=== PATIENT | male | born 1970 | race Caucasian/White ===

== ENCOUNTER 2025-03-13 15:15 | Emergency (ER) | payer OTHER, SELFPAY ==
--- NOTE | ~2025-03-13 | CT_ITS ---
CLINICAL HISTORY: Left lower riib spleem pain. fall down stairs CT chest with contrast Comparison: None Findings: The heart is normal size. The visualized thyroid and mediastinum are unremarkable. The lungs are clear. The upper abdomen is unremarkable. The bones are intact. IMPRESSION: 1. Unremarkable chest CT. This document has been electronically signed by: Hector Singh MD on 03/13/2025 18:11:21
--- NOTE | ~2025-03-13 | CT_ITS ---
CLINICAL HISTORY: fall down stairs spleen tenderness. CT abdomen and pelvis with contrast Comparison: None Findings: No consolidation or effusion. Hepatic steatosis. Small hypodensities of the liver are statistically representing cyst or hemangioma. The gallbladder and additional solid organs are within normal limits. No evidence of splenic injury. No renal stones. No bowel obstruction, pneumoperitoneum, or pneumatosis. Unremarkable abdominal aorta. There is a 1.3 x 1.5 cm soft tissue nodule of the left upper abdomen series 5, image 21. Pelvic contents unremarkable. Normal appendix. The bones are intact. IMPRESSION: No acute findings. Soft tissue nodule of the left upper abdomen could represent an enlarged lymph node or less likely a splenule. This document has been electronically signed by: Hector Singh MD on 03/13/2025 18:23:12
--- NOTE | ~2025-03-13 | CT_ITS ---
CLINICAL HISTORY: Fall down stairs CT head without contrast Comparison: None Findings: No intra-axial mass, midline shift, hydrocephalus, or acute hemorrhage. No significant atrophy-like change or white matter disease. The visualized paranasal sinuses and mastoid air cells are normal. The orbits are within normal limits. There is no acute fracture. IMPRESSION: 1. No acute intracranial findings. This document has been electronically signed by: Hector Singh MD on 03/13/2025 18:07:08
--- NOTE | ~2025-03-13 | CT_ITS ---
CLINICAL HISTORY: fall down [address] cervical spine without contrast Comparison: None Findings: Normal vertebral body alignment. No significant degenerative change. No acute fractures or dislocations. No acute findings on limited view of the intracranial contents. Soft tissues of the neck are normal. No consolidation or effusion at the lung apices. IMPRESSION: No acute findings. This document has been electronically signed by: Hector Singh MD on 03/13/2025 18:06:41
[2025-03-13 15:51] VITALS: BP 182/98; PULSE 85; RESP 18; TEMP 37; O2SAT 100; BMI 27.7
--- NOTE | 2025-03-13 16:01 | ECG_ITS ---
Test Reason : fall Blood Pressure : */* mmHG Vent. Rate : 72 BPM Atrial Rate : 72 BPM P-R Int : 170 ms QRS Dur : 96 ms QT Int : 398 ms P-R-T Axes : 36 -18 6 degrees QTcB Int : 435 ms Normal sinus rhythm Normal ECG No previous ECGs available Referred By: Phu Wheatley Electronically Signed By: VASYL MCMANUS MD
--- NOTE | 2025-03-13 16:02 | ED.GENADULT ---
HPI - General Adult General Chief complaint: Fall Stated complaint: Fall/ T-1 Time Seen by Provider: 03/13/25 16:02 Source: patient Mode of arrival: ambulatory Limitations: no limitations History of Present Illness ED Provider: Phu Wheatley HPI narrative: 54 yold male who states no pmh presents to the ED for left lower rib/spleen pain after falling down 10 stairs last night. Patient states he tripped over his cat. Patient states he felll unto his left chest/abdomen. patient admits to hitting head, but denies loss of conscisosuness. Patient is not on daily meds. patient than states he was constipated and while straining he had one episode of slight red blood in stool. Related Data Previous Rx's ?Medication ?Instructions ?Recorded ketorolac 10 mg tablet 10 mg PO Q6H PRN pain 5 days #20 03/13/25 tabs Allergies Allergy/AdvReac Type Severity Reaction Status Date / Time Seasonal Allergies Allergy Unknown Verified 03/13/25 15:53 Review of Systems Review of Systems: left rib/splleing pain Yes all other systems are reviewed and are negative [facility] Social History Social History Advance Directives: No Advance Directives Information Provided: No Physical Exam ED Vital Signs: Vital Signs - 24 hr 03/13/25 15:51 03/13/25 19:25 03/13/25 19:27 Temperature 98.6 F 98.1 F 98.1 F Pulse Rate 85 77 77 Respiratory Rate 18 16 16 Blood Pressure 182/98 H 169/88 H 169/88 H Pulse Oximetry 100 98 98 Oxygen Delivery Method Room Air Room Air Room Air BMI result Body Mass Index 27.7 Const General: cooperative, healthy appearing, comfortable, no acute distress, well developed, alert, awake and Physically active Orientation/consciousness: patient oriented x3 HENMT Head: Yes normal to inspection, Yes No palpable skull fracture present, Yes normocephalic and Yes atraumatic Ears: hearing grossly normal bilaterally, external ears normal, TM's normal bilaterally, TM normal on the right, TM normal on the left, EAC's normal and mastoids normal Throat: Yes posterior oropharynx normal, Yes tonsils normal and Yes uvula midline Eyes General: appearance normal, both eyes and all related structures Visual Lara: normal visual lara by confrontation Alignment and Position: alignment normal Periorbital: periorbital findings normal Eyelids: Yes eyelids normal Conjunctivae: conjunctivae normal Sclerae: sclerae normal Corneas: corneas normal Pupils: Equal, round and reactive pupils present EOM: EOMs intact bilaterally Direct Ophthalmoscopy: normal light reflex Neck Neck: Yes normal visual inspection, Yes full ROM, Yes no lymphadenopathy, Yes no meningeal signs, Yes trachea midline, Yes supple, No anterior neck swelling and No tender Chest Chest palpation & inspection: normal inspection of the chest and normal palpation of entire chest wall Chest/axillae images: 1. positive for tenderness on palpation. negative for ecchymosis, crepitus, erythema, or deformities. negative for rash. Resp Effort & Inspection: normal respiratory effort and able to speak in complete sentences Auscultation: clear to auscultation bilaterally GI Inspection: Yes normal to inspection Palpation (GI): Soft to palpation, not firm, nontender, no guarding and not rigid General: Yes no CVA tenderness Back/Spine/Pelvis Back: no CVA tenderness and No back tenderness Skin General skin exam: no rashes or lesions noted, elasticity normal and turgor normal Neuro General: patient oriented x3, gait normal, tone normal, moves all extremities, Normal light touch and pain sensation, no meningeal signs, no focal motor deficits and CN's II-XI intact bilaterally Cranial nerves: Yes Equal, round and reactive pupils present Extrem General: Yes normal to inspection, Yes full ROM and Yes capillary refill normal Psych Appearance: grossly normal, well kempt and not disheveled Course Course Course Narrative: RME; 54-year-old male presents to the ED for left lower chest plane abdominal pain since last night after falling down 10 stairs and falling onto left abdominal chest area. Patient states also hitting head. Patient denies any loss of consciousness. Patient states he slipped due to avoiding stepping his cat. Patient states today while using the bathroom there was slight blood in stool, but patient was straining and is constipated. Due to trauma and slight blood in stool with left spleen tendernss will do trauma scan. Medications Administered Discontinued Medications Generic Name Dose Route Start Last Admin Trade Name Freq PRN Reason Stop Dose Admin Iohexol 75 ml 03/13/25 17:33 03/13/25 17:34 Iohexol 350 Mg/Ml 75 Ml Infus..Btl IV 03/13/25 17:34 75 ml ONCE ONE Administration Ketorolac Tromethamine 30 mg 03/13/25 18:48 03/13/25 19:05 Ketorolac Tromethamine 30 Mg/Ml Vial IVPUSH 03/13/25 18:49 30 mg ONCE ONE Administration Medical Decision Making Medical Decision Making [facility] Narrative: 54 yold mal presents to the ED left sided rib/spleen tenderness ever since falling down 10 stairs last night. Patient tripped over his cat. patient denies any loss of consciouisness. Patient states left lower ribs spleen pain on movement ever since injury. Patient also states constipated has small right blood in stool last night. Patient has had only 1 episode. Patient denies any rectal bleeding ever since. Patient refuse rectal exam. Due to traumatic story patient had a trauma scan which shows no life-threatening etiology. Head cervical spine normal. Chest abdominal CT scan negative for any life-threatening etiology. Patient given Toradol for pain. EKG negative STEMI. Two troponins negative. Repeat CBC normal at baseline. Patient is safe for discharge. Not suspecting PE, KS, CHF, GI bleed, or any orther life threatening etiology. patient informed not take aspirin or any other NSAIDS while taking ketorolac prescription. Patient made aware of left upper abdominal lymphnode and given copy of images for follow up with PCp. Differential Diagnosis Differential Diagnoses: The differential diagnosis associated with the presentation includes (Rib fracture, splenic blade injury, abdominal injury, brain bleed, cervical spine fracture. Colitis) Admission/Observation Consideration of admission/observation: Escalation of care including admission/observation considered Lab Data [facility] Lab Attestation statement: I reviewed the patient's lab results. 03/13/25 18:19 03/13/25 16:05 Labs: Lab Results 03/13/25 03/13/25 Range/Units 16:05 18:19 WBC 8.1 8.6 (4.8-10.8) X10*3/uL RBC 4.48 L 4.48 L (4.60-5.80) X10*6/uL Hgb 15.1 15.0 (14.0-18.0) g/dl Hct 40.8 L 41.2 L (42.0-52.0) % MCV 91.1 92.0 (80.0-98.0) fL MCH 33.7 H 33.5 H (27.0-33.0) pg MCHC 37.0 H 36.4 H (31.0-36.0) g/dl RDW 11.7 11.6 (11.0-16.0) % Plt Count 194 192 (160-400) X10*3/uL MPV 9.3 L 9.2 L (9.4-12.4) fL Immature Gran % (Auto) 0.2 0.3 (0.0-0.4) % Neut % (Auto) 79.0 H 77.1 H (45-73) % Lymph % (Auto) 13.7 L 14.7 L (20-40) % [place] % (Auto) 6.8 7.5 (2-11) % Eos % (Auto) 0.1 0.1 (0-4) % Baso % (Auto) 0.2 0.3 (0-2) % Lymph # (Auto) 1.1 L 1.3 (1.2-4.9) X10*3/uL [place] # (Auto) 0.6 0.7 (0.1-1.2) X10*3/uL Eos # (Auto) 0.0 0.0 (0.0-0.4) X10*3/uL Baso # (Auto) 0.0 0.0 (0.0-0.2) X10*3/uL Abs Immat Gran (auto) 0.02 0.03 (0.00-0.03) X10*3/uL Absolute Neuts (auto) 6.4 6.7 (2.0-8.3) x10*3/uL Absolute Nucleated RBC 0.000 0.000 (0.0-0.012) X10*3/uL Nucleated RBC % (auto) 0.0 0.0 (0.0-0.2) /100WBC PT 10.9 (10.9-12.4) SEC INR 0.9 (0.9-1.1) APTT 25.9 L (26.0-36.8) SEC Sodium 139 (135-145) mmol/L Potassium 3.9 (3.3-5.1) mmol/L Chloride 106 (96-108) mmol/L Carbon Dioxide 19 L (22-29) mmol/L Anion Gap 18 (12-20) BUN 9 (9-16) mg/dL Creatinine 0.83 (0.5-1.4) mg/dL Estim Creat Clear Calc 94.3 Estimated GFR > 60 Random Glucose 97 (60-115) mg/dL Calcium 9.2 (8.4-10.2) mg/dL Total Bilirubin 1.6 H (0.0-1.0) mg/dL AST 31 (5-37) U/L ALT 27 (0-40) U/L Alkaline Phosphatase 60 (39-117) U/L Troponin I High Sens < 2.7 < 2.7 (<3.5-35.0) ng/L Total Protein 7.7 (6.5-8.0) g/dL Albumin 4.6 (3.5-5.0) g/dL Independent Interpretation I performed an independent interpretation of an: CT Scan Radiology Impression Discussion of test interpretation with radiology: I have reviewed the radiologist's reading. Independent Historian Clinical information obtained from an independent historian. History obtained from or confirmed by: Other (Patient) Prescription Management I considered prescription management with: Pain Medication Discharge Plan Discharge Clinical Impression: Fall, Contusion Patient Disposition: Home, Self-Care Instructions: Fall Prevention (ED), Bone Bruise (ED) Additional Instructions: Your labs, EKG and images came back reassuring. Recommend follow up with PCP. Return to the ED immediately for any chest pain, shortness of breath, abdominal pain, rectal bleeding, bloody urine, fever, chills, headache, dizziness, or any other concerning symptoms. Do not take any other NSAIDS while taking ketoralac. Do not take any naproxen, allelve, motrin, ibuprofen, diclofenac, or any NSAIDS. CT abdomen and pelvis with contrast Comparison: None Findings: No consolidation or effusion. Hepatic steatosis. Small hypodensities of the liver are statistically representing cyst or hemangioma. The gallbladder and additional solid organs are within normal limits. No evidence of splenic injury. No renal stones. No bowel obstruction, pneumoperitoneum, or pneumatosis. Unremarkable abdominal aorta. There is a 1.3 x 1.5 cm soft tissue nodule of the left upper abdomen series 5, image 21. Pelvic contents unremarkable. Normal appendix. The bones are intact. IMPRESSION: No acute findings. Soft tissue nodule of the left upper abdomen could represent an enlarged lymph node or less likely a splenule. This document has been electronically signed by: Hector Singh MD on 03/13/2025 18:23:12 CT chest with contrast Comparison: None Findings: The heart is normal size. The visualized thyroid and mediastinum are unremarkable. The lungs are clear. The upper abdomen is unremarkable. The bones are intact. IMPRESSION: 1. Unremarkable chest CT. This document has been electronically signed by: Hector Singh MD on 03/13/2025 18:11:21 CT head without contrast Comparison: None Findings: No intra-axial mass, midline shift, hydrocephalus, or acute hemorrhage. No significant atrophy-like change or white matter disease. The visualized paranasal sinuses and mastoid air cells are normal. The orbits are within normal limits. There is no acute fracture. IMPRESSION: 1. No acute intracranial findings. This document has been electronically signed by: Hector Singh MD on 03/13/2025 18:07:08 Dictated By: Hector Singh MD Signed By: <Electronically signed by Hector Singh MD in OV> 03/13/[address] cervical spine without contrast Comparison: None Findings: Normal vertebral body alignment. No significant degenerative change. No acute fractures or dislocations. No acute findings on limited view of the intracranial contents. Soft tissues of the neck are normal. No consolidation or effusion at the lung apices. IMPRESSION: No acute findings. This document has been electronically signed by: Hector Singh MD on 03/13/2025 18:06:41 Prescriptions: New ketorolac 10 mg tablet 10 mg PO Q6H PRN (Reason: pain) 5 Days Qty: 20 0RF Rx Instructions: Patient received 30 mg IV toradol in the ED Stand Alone Forms: Work/School Release Interventions: ED Discharge Assessment Last Done: 03/13/25 19:27 Discharge Date/Time: 03/13/25 19:28 Print Language: Spanish
[2025-03-13 16:09] LABS: MANUAL DIFF FLAG NO
[2025-03-13 16:11] LABS: Basophils Percent Auto 0.2 % (0-2); Eosinophils Percent Auto 0.1 % (0-4); Hematocrit 40.8 % (42.0-52.0); Hemoglobin 15.1 g/dl (14.0-18.0); Imm Gran Abs Auto 0.02 X10*3/uL (0.00-0.03); Imm Gran Pct Auto 0.2 % (0.0-0.4); Lymphocytes Absolute Auto 1.1 X10*3/uL (1.2-4.9); Lymphocytes Percent Auto 13.7 % (20-40); Mean Corpuscular Hemoglobin 33.7 pg (27.0-33.0); Mean Corpuscular Volume 91.1 fL (80.0-98.0); Mean Platelet Volume 9.3 fL (9.4-12.4); Monocytes Absolute Auto 0.6 X10*3/uL (0.1-1.2); Monocytes Percent Auto 6.8 % (2-11); Neutrophils Absolute Auto 6.4 x10*3/uL (2.0-8.3); Platelet Count 194 X10*3/uL (160-400); Red Blood Count 4.48 X10*6/uL (4.60-5.80); Red Cell Distribution Width 11.7 % (11.0-16.0); White Blood Count 8.1 X10*3/uL (4.8-10.8)
[2025-03-13 16:16] LABS: INTERNATIONAL NORM RATIO 0.9 (0.9-1.1); Prothrombin Time 10.9 SEC (10.9-12.4)
[2025-03-13 16:19] LABS: Partial Thromboplastin Time 25.9 SEC (26.0-36.8)
[2025-03-13 16:33] LABS: Alanine Aminotransferase 27 U/L (0-40); Albumin Level 4.6 g/dL (3.5-5.0); Anion Gap 18 (12-20); Aspartate Amino Transferase 31 U/L (5-37); Bilirubin Total 1.6 mg/dL (0.0-1.0); Blood Urea Nitrogen 9 mg/dL (9-16); Calcium 9.2 mg/dL (8.4-10.2); Carbon Dioxide 19 mmol/L (22-29); Chloride 106 mmol/L (96-108); Creatinine Clr Calc Pharmacy 94.3; Estimated Glomerular Filt Rate > 60; Glucose Random 97 mg/dL (60-115); Potassium 3.9 mmol/L (3.3-5.1); Sodium 139 mmol/L (135-145); Total Protein 7.7 g/dL (6.5-8.0)
[2025-03-13 16:36] LABS: Troponin-I High Sensitivity < 2.7 ng/L (<3.5-35.0)
[2025-03-13 17:22] LABS: Alkaline Phosphatase 60 U/L (39-117)
[2025-03-13] MEDS: iohexoL 350 MG/ML 75 ML INFUS..BTL IV (17:34)
[2025-03-13 18:22] LABS: MANUAL DIFF FLAG NO
[2025-03-13 18:27] LABS: Basophils Percent Auto 0.3 % (0-2); Eosinophils Percent Auto 0.1 % (0-4); Hematocrit 41.2 % (42.0-52.0); Imm Gran Abs Auto 0.03 X10*3/uL (0.00-0.03); Imm Gran Pct Auto 0.3 % (0.0-0.4); Lymphocytes Absolute Auto 1.3 X10*3/uL (1.2-4.9); Lymphocytes Percent Auto 14.7 % (20-40); Mean Corpuscular HGB Conc 36.4 g/dl (31.0-36.0); Mean Corpuscular Hemoglobin 33.5 pg (27.0-33.0); Mean Platelet Volume 9.2 fL (9.4-12.4); Monocytes Absolute Auto 0.7 X10*3/uL (0.1-1.2); Monocytes Percent Auto 7.5 % (2-11); Neutrophils Absolute Auto 6.7 x10*3/uL (2.0-8.3); Neutrophils Percent Auto 77.1 % (45-73); Platelet Count 192 X10*3/uL (160-400); Red Blood Count 4.48 X10*6/uL (4.60-5.80); Red Cell Distribution Width 11.6 % (11.0-16.0); White Blood Count 8.6 X10*3/uL (4.8-10.8)
[2025-03-13 18:42] LABS: Troponin-I High Sensitivity < 2.7 ng/L (<3.5-35.0)
--- OUTSIDE RECORDS SUMMARY | 2025-03-13 18:57 | XMS_ITS ---
Author Name [facility] Organization Unknown Encounters Encounter Type Encounter Reason Primary Diagnosis Location Date Ambulatory [facility] [place] 09/25/2024 Ambulatory [facility] [place] 09/25/2024 Ambulatory [facility] [place] 09/25/2024
--- OUTSIDE RECORDS SUMMARY | 2025-03-13 18:57 | XMS_ITS | Clinical Summary ---
Author Organization [address] Address [address] [place] [address] Phone Care Team Providers Care Warranty Coordinator Name Role Phone Isaiah Collier MD Primary Care Provider Allergies No known active allergies Medications sildenafiL (VIAGRA) 50 mg tablet Take 1 tablet (50 mg total) by mouth if needed for erectile dysfunction. 10 tablet 5 01/01/2025 Active Active Problems Problem Noted Date Diagnosed Date Elevated bilirubin 01/04/2023 Overview (10/19/2024): Adonis? Erectile dysfunction 01/04/2023 Hyperlipidemia 01/04/2023 Impaired fasting blood sugar 01/04/2023 Immunizations Name Administration Dates Next Due Influenza Quadravalent, MDCK , 0.5ml, preservative free (Flucelvax) 6mo and older 12/22/2021 Influenza trivalent, 0.5mL, preservative free (Fluarix; FluLaval; Fluzone) ages 6mo and older (Afluria) 3 years and older 09/05/2024 Surgical History Surgery Date Site/Laterality Comments OTHER SURGICAL HISTORY PROCEDURE: DENIES PREVIOUS SURGERY Medical History Medical History Date Comments Patient denies medical problems DX:Patient denies medical problems Family History Medical History Relation Name Comments Asthma Father Relation Name Status Comments Father Social History Tobacco Use Types Packs/Day Years Used Date Smoking Tobacco: Never Smokeless Tobacco: Never Alcohol Use Standard Drinks/Week Comments Yes 0 (1 standard drink = 0.6 oz pur e alcohol) Housing Instability Answer Date Recorde d Are you worried that in the next 2 months you may not have stable housing? No 01/16/2025 Food Access & Nutrition Answer Date Rec orded Do you have access to a vari ety of food including fruits and vegetables? Yes 01/16/2025 Access to Healthcare Answer Date Record ed Within the last 3 months, ho w many times did you visit the emergency department for your medical care? 0 01/16/2025 Health Literacy Answer Date Recorded How often do you need to hav e someone help you when you read instructions, pamphlets, or other written material from your doctor or pharmacy? Never 01/16/2025 Caregiver: How often do you need to have someone help you when you read instructions, pamphlets, or other written material from your doctor or pharmacy? Not on file 01/16/2025 Financial Risk Answer Date Recorded How hard is it for you to pa y for the very basics like food, housing, medical care, and air conditioning / heating? Somewhat hard 01/16/2025 Transportation Answer Date Recorded Has the lack of transportati on kept you from meetings, work, or from getting things needed for daily living? No Has the lack of transportati on kept you from medical appointments or from getting medications? No 01/16/2025 Social Isolation Answer Date Recorded How often do you feel lonely or isolated from th ose around you? Never 01/16/2025 Food Risk Answer Date Recorded Within the past 12 months we worried whether our food would run out before we got money to buy more. Never true 01/16/2025 Within the past 12 months th e food we bought just didn't last and we didn't have money to get more. Never true 01/16/2025 Dependent Care Answer Date Recorded Do you need help finding or paying for care for your loved ones. For example, early childhood education instructor or elderly care for an older adult? No 01/16/2025 Education Answer Date Recorded Do you think completing more education or training, like finishing a GED, going to college, or learning a trade, would be helpful for you? No 01/16/2025 Employment and Income Answer Date Recor ded During the last four weeks, have you been actively looking for work? No 01/16/2025 Living Situation Answer Date Recorded What is your living situation? 0 01/16/2025 Sex and Gender Information Value Date Recorded Sex Assigned at Not on file Legal Sex Male 8:19 PM EST Gender Identity Not on file Sexual Orientation Not on file Obstetrics History Last Filed Vital Signs Vital Sign Reading Time Taken Comments Blood Pressure 153/75 09/12/2024 12:54 PM EDT provider will be recheck Pulse 67 09/12/2024 12:54 PM EDT Temperature - - Respiratory Rate - - Oxygen Saturation - - Inhaled Oxygen Concentration - - Weight 74.4 kg (164 lb) 09/12/2024 12:5 4 PM EDT Height 165.1 cm (5' 5 ) 09/12/2024 12:5 4 PM EDT Body Mass Index 27.29 09/12/2024 12:54 PM EDT Plan of Treatment Upcoming Encounters Date Type Department Care Team (Late st Contact Info) Description 08/22/2025 9:00 AM EDT Office Visit Adult Medicine [facility] [address] [place] [address] Isaiah Collier MD [address] [place] [address] Health Maintenance Due Date Last Done Comments DTaP,Tdap,and Td Vaccines (1 - Tdap) 1987 Hepatitis B Vaccines (1 of 3 - 19+ 3-dose series) 1987 Pneumococcal Vaccine: 50+ Years (1 of 1 - PCV) 2018 Zoster Vaccines (1 of 2) 2018 HIV Screening 12/23/2023 COVID-19 Vaccine (4 - 2023-2 5 season) 2024 12/22/2021, 04/30/2021, 04/01/2021 Depression Screening 01/16/2026 01/16/2025 Social Influencers of Health Screening 01/16/2026 01/16/2025 Cholesterol Screening (Lipid Panel) 01/04/2028 01/04/2023 Colorectal Cancer Screening: Colonoscopy 11/10/2033 11/10/2023 Hepatitis C Screening Completed 01/04/2023 Influenza Vaccine Completed 09/05/2024, 12/22/2021 HIB Vaccines Aged Out No longer eligi ble based on patient's age to complete this topic HPV Vaccines Aged Out No longer eligi ble based on patient's age to complete this topic Hepatitis A Vaccines Aged Out No long er eligible based on patient's age to complete this topic IPV Vaccines Aged Out No longer eligi ble based on patient's age to complete this topic MMR Vaccines Aged Out No longer eligi ble based on patient's age to complete this topic Meningococcal ACWY Vaccine Aged Out N o longer eligible based on patient's age to complete this topic Meningococcal B Vaccine Aged Out No l onger eligible based on patient's age to complete this topic Pneumococcal Vaccine: Pediatrics (0 to 5 Years) and At-Risk Patients (6 to 64 Years) Aged Out No longer eligible b ased on patient's age to complete this topic RSV Immunization Patients Under 20 months Aged Out No longer eligible b ased on patient's age to complete this topic Varicella Vaccines Aged Out No longer eligible based on patient's age to complete this topic Procedures Procedure Name Priority Date/Time Associated Diagnosis Comments COLONOSCOPY Routine 11/10/2023 HEPATITIS C SCREENING Routine 01/04/2023 LIPID PANEL Routine 01/04/2023 from Last 3 Months or Most Recently Relevant to Health Maintenance Results * Colonoscopy (11/10/2023) [facility] Colonoscopy abstracted, no interpretation Anatomical Region Laterality Modality Other [facility] Provider HEALTH MAINTENANCE Final Result * Hepatitis C Screening (01/04/2023) [facility] Hepatitis C Screening abstracted [facility] Provider HEALTH MAINTENANCE Final Result * (ABNORMAL) Lipid panel (01/04/2023) [facility] LDL/HDL Ratio 3 0 - 4 Triglycerides 68 0 - 150 mg/dL Cholesterol 258(A) 0 - 200 mg/dL HDL 100 >=40 mg/dL LDL Cholesterol 145(A) 0 - 100 mg/dL Blood Venous blood specimen / Unknown [facility] Provider LAB BLOOD ORDERABLES Melba l Result from Last 3 Months or Most Recently Relevant to Health Maintenance Insurance [employer] Care Teams Warranty Coordinator Relationship Specialty Start Date End Date Isaiah Collier MD [address], [place] [phone] PCP - General 12/22/22
--- OUTSIDE RECORDS SUMMARY | 2025-03-13 18:57 | XMS_ITS | Data Portability ---
Author Organization [facility], [facility] Address [address] [place] [address] Care Team Providers Care [employer] Medicine Physician Name Role Phone YAMIL SALAZAR Primary Care Provider Assessment No assessment recorded. Plan of Treatment Reminders Order Date Submit Date Provider Last Modified By Organization Details Last Modified Time Details Appointments None recorde d. Lab None recorde d. Referral None recorde d. Procedures None recorde d. Surgeries None recorde d. Imaging XR, wrist, 3 or more view - rm 117 3v right wrist with research management associate view 024 10/31/20 24 [email or web address] [facility], [address], [place], [address], 15:40:30 Medication Orders None recorde d. Patient TargetsNo targets recorded. Patient InstructionsNo instructions recorded. Reason for Referral None Reported. Results Created Date Observation Date Name Description Value Unit Range Abnormal Flag Note LastModifiedBy Organization Detail LastModifiedTime 10/31/20 24 10/31/2024 XR, wrist , 3 or more view http:/ [email or web address] ?Encry pted=s hAaTro YD8dLq bEUv6g %2BXZw aYqtaq 0bqfl% 2Fg9IQ a4ajBk vP9nXo QUaueC m3YtLR FvZlgJ JJ8mAn HZtai3 8m7853 AC0Kqa XqEWaK kKiQtr MwF INTERFACE [facility] [address], [place], [address], 10/31/2024 17:51:34 10/31/20 24 10/31/2024 XR, wrist , 3 or more view http:/ [email or web address] ?Encry pted=s Yan YD8dLq bEUv6g %2BXZw aYqtaq 0bqfl% 2Fg9IQ a4ajBk vP9nXo QUaueC m3YtLR FvZlgJ JJ8mAn HZtai3 1p8684 AC0Kqa XqEWaK kKiQtr MwF INTERFACE [facility] [address], [place], [address], 10/31/2024 17:51:35 Result Notes None recorded. Procedures Surgical History None recorded. Imaging Results Imaging Date Name Status LastModified by Organiz ation Details LastModified Time 10/31/2024 XR, wrist, 3 or more view completed [facility] [address], [place], [address], 10/31/2024 17:51:34 10/31/2024 XR, wrist, 3 or more view completed [facility] [address], [place], [address], 10/31/2024 17:51:35 Procedure Notes None recorded. Medical Equipment None Reported. Allergies No known drug allergies Medications Name Sig Start Date Stop Date Status Note LastModified by Organization Details LastModified Time sildenafil 50 mg tablet TAKE 1 TABLET (50 MG TOTAL) BY MOUTH IF NEEDED FOR ERECTILE DYSFUNCTION . active Not Available Not Available No t Available sildenafil 25 mg tablet PLEASE SEE ATTACHED FOR DETAILED DIRECTIONS active Not Available Not Available N ot Available GaviLyte-G 236 gram-22.74 gram-6.74 gram-5.86 gram oral solution PLEASE SEE ATTACHED FOR DETAILED DIRECTIONS active Not Available Not Available N ot Available Vitals Date Recorded Body height Body mass index (BMI) Body weight Provider Name and Address Organization Details Last Updated DateTime 10/31/2024 165.1 cm 27.5 kg/m2 17374.74 g Jose Dior [place] [facility] 10/31/2024 17:27:39 Date Recorded Body height Body mass index (BMI) Body weight Provider Name and Address Organization Details Last Updated DateTime 12/15/2024 165.1 cm 27.5 kg/m2 15055.74 g SARA KIARA [facility] 12/15/2024 15:40:17 Date Recorded Body height Body mass index (BMI) Body weight Provider Name and Address Organization Details Last Updated DateTime 01/11/2025 165.1 cm 27.5 kg/m2 49219.74 g MARCK JORDAN [facility] 01/11/2025 15:52:00 Social History None recorded. Functional Status None recorded. Mental Status None recorded. Family History Nothing Reported. Medical History No medical history recorded. Past Encounters Encounter ID Performer Location Encounter Start Date Encounter Closed Date Diagnosis/Indication Diagnosis SNOMED-CT Code Diagnosis ICD10 Code Diagnosis Note [id number] ABHIJIT [facility] [address] [place] [address] 10/31/2024 16:58:27 11/15/2024 17:13:27 Carpal tunnel syndrome of right wrist [id number] 54546 G56.01 [id number] [facility] [address] [place] [address] 12/15/2024 15:36:11 01/10/2025 12:04:01 [id number] MD BARBIE [facility] [address] [place] [address] 01/11/2025 15:45:02 01/31/2025 09:27:43 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 [id number] M24.131 Health Concerns Section Related Observation LastModified by Organization Detai ls LastModified Time None Recorded Concern Status LastModified by Organization Details LastModified Time None Recorded Advance Directives Directive None Recorded Payers Encounter Date Sequence Insurance Name Policy Number Policy Malone Covered Member ID Malone Member ID Guarantor Name 10/31/2024 1 [facility] [id number] Marv Anglin [id number] 1 [id number] Marv Anglin 12/15/2024 1 [facility] [id number] Marv Anglin [id number] 1 [id number] 01 Marv Anglin 01/11/2025 1 [facility] PL[facility] [id number] Marv Anglin [id number] 1 [id number] 01 Marv Anglin Notes Date Note Type Note Provider Name and Address Organization Details Recorded Time 10/31/2024 text/html I am seeing the patient today under the supervision of dr Taylor who was available but who did not see the patient. DX: Ulnar-sided right wrist pain possible central TFCC tear HPI: 54-year-old male here for orthopedic consultation. He is complaining of dorsal ulnar right wrist pain since August. Pain started after swinging a golf club. He heard a pop. Since then he has been wearing a brace which provide support and relieves the pain. Anti-inflammatories are effective. No numbness tingling. Past family, medical, social history and review of systems has been reviewed, updated and is located in the patient? s chart. Examination: Alert and oriented ? ? 3 . No acute distress. Nonantalgic gait. Examination right wrist reveals no obvious soft tissue swelling erythema ecchymosis. Full range of motion elbow forearm wrist and digits. No tenderness over the distal radius or ulna. No tenderness over the scaphoid lunate interval. He is tender over the ulnocarpal joint. No DRUJ instability. Subtle positive TFC grind test. 1+ cap refill 2+ radial pulse. Left hand reveals no soft tissue swelling, erythema or ecchymosis. Digital range of motion is full. Neurovascular intact. X-rays ordered, obtained and reviewed at [facility] 4 views right wrist PA lateral bleak and research management associate view reveals ulnar neutral variance. No dissociation of the joints. Impression/Plan:Find ings and the situation discussed with the patient. Treatment options were discussed. Patient he is doing well in his wrist splint. He was provided with a prescription for a new splint. He may take anti-inflammatories as needed. He will follow-up in 4 to 6 weeks if no improvement. At that time would recommend a corticosteroid injection. He is in agreement this treatment plan Caitlin Chacon PA-C [address], [place], [address], [facility] - [facility] 10/31/2024 18:02:34 12/15/2024 text/html I am seeing the patient today under the supervision of dr Taylor who was available but who did not see the patient. DX: Ulnar-sided right wrist pain possible central TFCC tear HPI: 54-year-old male here for reevaluation. In summary,. He is complaining of dorsal ulnar right wrist pain since August. Pain started after swinging a golf club. He heard a pop. Since then he has been wearing a brace which provide support and relieves the pain. Anti-inflammatories are effective. No numbness tingling. He returns today with the same complaints. The splint continues to be effective. If he takes it off he has wrist pain. He was offered a corticosteroid injection but he is thinking about possibly proceeding with a diagnostic arthroscopy. Past family, medical, social history and review of systems has been reviewed, updated and is located in the patient? s chart. Examination: Alert and oriented ? ? 3 . No acute distress. Nonantalgic gait. Examination right wrist reveals no obvious soft tissue swelling erythema ecchymosis. Full range of motion elbow forearm wrist and digits. No tenderness over the distal radius or ulna. No tenderness over the scaphoid lunate interval. He is tender over the ulnocarpal joint. No DRUJ instability. Subtle positive TFC grind test. 1+ cap refill 2+ radial pulse. Left hand reveals no soft tissue swelling, erythema or ecchymosis. Digital range of motion is full. Neurovascular intact. X-rays ordered, obtained and reviewed at [facility] 4 views right wrist PA lateral bleak and research management associate view reveals ulnar neutral variance. No dissociation of the joints. 10/31/2024 Impression/Plan:Find ings and the situation discussed with the patient. Treatment options were discussed. He will continue with the wrist brace. He will follow-up with Dr. Taylor for reexamination possible corticosteroid injection versus arthroscopic evaluation Caitlin Chacon PA-C [address], [place], [address], [place] - [facility] 12/15/2024 16:00:48 01/11/2025 text/html Diagnosis: TFC t ear right wrist The patient returns at our request. He reports that his pain is resolved. Past family, medical, social history and review of systems has been reviewed, updated and is located in the patient? s chart. Examination: Healthy appearing patient in no apparent distress. Alert and oriented. He has symmetric range of motion of his bilateral wrist and digits. Provocative testing of wrist and digits reveal no instability. No atrophy in either upper extremity. Brisk capillary refill in all digits Plan: The patient has done well. He will follow-up at his discretion. He is comfortable with this plan. Virgil Taylor MD [address] [place] [address] [address], [place], [address], [facility] - [facility] 01/15/2025 17:03:35
[2025-03-13] MEDS: Ketorolac Tromethamine 30 MG/ML VIAL IVPUSH (19:05)
[2025-03-13 19:25] VITALS: BP 169/88; PULSE 77; RESP 16; TEMP 36.7; O2SAT 98
[2025-03-13 19:27] VITALS: BP 169/88; PULSE 77; RESP 16; TEMP 36.7; O2SAT 98
== END 2025-03-13 19:28 | disposition home or self-care (01) ==
PROVIDERS: Physician Assistant; Emergency Provider Emergency Medicine
DX: T14.8XXA Other injury of unspecified body region, initial encounter (principal); R07.81 Pleurodynia; K92.1 Melena; K59.00 Constipation, unspecified; W10.9XXA Fall (on) (from) unspecified stairs and steps, initial encounter; Y93.9 Activity, unspecified; Y92.9 Unspecified place or not applicable; Y99.9 Unspecified external cause status
CPT/HCPCS: 36415; 70450; 71260; 72125; 74177; 80053; 84484; 85025; 85610; 85730; 93005; 96374; 99284; J1885; Q9967

== ENCOUNTER → 2025-03-13 15:54 | Outpatient (BNV) | payer OTHER, SELFPAY | PROVIDERS: Emergency Provider Emergency Medicine; Visit Provider Nuclear Medicine | DX: R19.02 Left upper quadrant abdominal swelling, mass and lump (principal); R10.32 Left lower quadrant pain; W10.9XXA Fall (on) (from) unspecified stairs and steps, initial encounter; R07.89 Other chest pain | CPT/HCPCS: 70450; 71260; 72125; 74177 ==

== ENCOUNTER → 2025-03-13 16:01 | Outpatient (BNV) | payer OTHER, SELFPAY | PROVIDERS: Emergency Provider Emergency Medicine; Visit Provider Internal Medicine Cardiovascular Disease | DX: S22.42XA Multiple fractures of ribs, left side, initial encounter for closed fracture (principal); W19.XXXA Unspecified fall, initial encounter | CPT/HCPCS: 93010 ==

== ENCOUNTER 2025-03-18 16:27 | Emergency (ER) | payer OTHER, SELFPAY ==
--- NOTE | ~2025-03-18 | XR_ITS ---
CLINICAL HISTORY: lower pain, recent fall Radiographs of the chest and left ribs Comparison: CT/SR - CT CHEST W IV CON - 03/13/25 16:47 EDT Findings: Fracture of the left 9th and 10th ribs with up to 3 mm of displacement. Normal heart size. Normal mediastinal contours. No pneumothorax. No opacity. No pleural effusion. Normal upper abdomen. Impression: Fracture of the left 9th and 10th ribs. This document has been electronically signed by: Lori Scott MD on 03/18/2025 17:34:52
--- NOTE | 2025-03-18 16:29 | ED_ITS ---
HPI - General Adult General Chief complaint: Fall Stated complaint: was here for x ray is back again in pain Time Seen by Provider: 03/18/25 17:38 Source: patient Mode of arrival: ambulatory Limitations: no limitations History of Present Illness ED Provider: danilo velasco np HPI narrative: Patient is a 54-year-old male who presents emergency department for re- evaluation pain. Reports he was just here Wednesday03/13/2025 after a mechanical fall down approximately 10 stairs. Was feeling better overall. at 02:00 this morning to adjust himself and sleep, felt a ?pop?, like bone on bone pain, the worst pain I've ever felt . Could not move after. Now with severe pain to the left lower chest/upper abdomen. worsens with cough, deep inspiration. Related Data Previous Rx's ?Medication ?Instructions ?Recorded ketorolac 10 mg tablet 10 mg PO Q6H PRN pain 5 days #20 03/13/25 tabs oxycodone 5 mg tablet 5 mg PO Q6H PRN pain #10 tabs 03/18/25 Allergies Allergy/AdvReac Type Severity Reaction Status Date / Time Seasonal Allergies Allergy Unknown Verified 03/18/25 16:32 Review of Systems Review of Systems: Yes all other systems are reviewed and are negative PMFSH Past Medical History Attestation statement: The following information was validated with the patient. Source: old records reviewed Physical Exam ED Vital Signs: Vital Signs - 24 hr 03/18/25 16:30 Temperature 97.8 F Pulse Rate 79 Respiratory Rate 16 Blood Pressure 149/81 H Pulse Oximetry 100 Oxygen Delivery Method Room Air BMI result Body Mass Index 28.6 Appearance: Alert.?Oriented to person, place and time. No acute distress.?Normal affect. CVS: Heart sounds normal. Normal heart rate and rhythm.? Pulses normal.?? Respiratory: No respiratory distress.? Lung sounds clear to auscultation bilaterally?? Chest: Tenderness upon palpation to left lateral ribs 9 through 11 Abdomen: Soft and non-tender. Normoactive bowel sounds. ? Skin: Skin warm and dry.? Normal skin color.? ? Extremities: No lower extremity edema.? Neuro: Moves all extremities spontaneously. Sensation intact bilaterally. Ambulates with normal steady gait. Medical Decision Making Medical Decision Making [facility] Narrative: Patient is a 54-year-old male who presents emergency department for evaluation of left lateral lower chest wall pain with the acute onset this morning after moving about in bed. Reports subjectively having a popping sensation. On examination has exquisite tenderness along the left lateral 9th through 11th rib. Lung sounds are clear to auscultation bilaterally. He was seen in the emergency department 03/13/[address] of the chest abdomen and pelvis without acute pathology, no notable rib fractures. XR was obtained today due to concern for rib fracture, do not have suspicion for pneumothorax, revealing a 9th and 10th rib fracture. These findings were discussed with patient. We reviewed conservative treatment, bracing of the chest wall during movement/cough, incentive spirometry, acetaminophen/ibuprofen and short course of oxycodone for severe pain. Outpatient follow-up with primary care doctor. Reviewed strict return precautions. All questions answered. Stable for discharge Differential Diagnosis Differential Diagnoses: The differential diagnosis associated with the presentation includes (See narrative above) Admission/Observation Consideration of admission/observation: Escalation of care including admission/observation considered Independent Interpretation I performed an independent interpretation of an: Plain X-Ray (See narrative above) Radiology Impression Discussion of test interpretation with radiology: I have reviewed the radiologist's reading. Radiologist Impression: Radiographs of the chest and left ribs Comparison: CT/SR - CT CHEST W IV CON - 03/13/25 16:47 EDT Findings: Fracture of the left 9th and 10th ribs with up to 3 mm of displacement. Normal heart size. Normal mediastinal contours. No pneumothorax. No opacity. No pleural effusion. Normal upper abdomen. Impression: Fracture of the left 9th and 10th ribs. External Record Review External record reviewed: Outpatient record Prescription Management I considered prescription management with: Pain Medication Discharge Plan Discharge Clinical Impression: Multiple rib fractures Qualifiers: Encounter type: initial encounter Fracture type: closed Laterality: left Qualified Code(s): S22.42XA - Multiple fractures of ribs, left side, initial encounter for closed fracture Patient Disposition: Home, Self-Care Instructions: Rib Fracture (ED) Additional Instructions: Be sure to rest over the next few days, apply ice to the area of pain for 10-15 minutes 4-6 times daily. Use a pillow or your arm to brace the chest with coughing, deep inspiration, or particular movements that are painful. Use the incentive spirometer as instructed. IF YOU NO LONGER HAVE KETOROLAC AT HOME you may take ibuprofen as noted below. BE CERTAIN THAT YOU DO NOT TAKE IBUPROFEN IN ADDITION TO KETOROLAC. You can take ibuprofen 200 mg, 3 tablets (600mg) every 6-8 hours as needed for pain, in addition to Tylenol 500 mg, 2 tablets (1,000mg) every 4-6 hours as needed for pain, but not to exceed 3 doses daily (3,000mg).? For pain unrelieved by the above I have sent a short prescription for oxycodone, this is a narcotic medication and can be addictive and it may make you drowsy. You should not drive, drink alcohol, or work while taking this medication. Prescriptions: New oxycodone 5 mg tablet 5 mg PO Q6H PRN (Reason: pain) Qty: 10 0RF Rx Instructions: Partial Fill upon patient request. No Action ketorolac 10 mg tablet 10 mg PO Q6H PRN (Reason: pain) 5 Days Qty: 20 0RF Rx Instructions: Patient received 30 mg IV toradol in the ED Referrals: Physician,Unknown J [Primary Care Provider] - Print Language: Eritrean
[2025-03-18 16:30] VITALS: BP 149/81; PULSE 79; RESP 16; TEMP 36.6; O2SAT 100; BMI 28.6
[2025-03-18 18:11] VITALS: BP 149/81; PULSE 79; RESP 16; TEMP 36.6; O2SAT 100
== END 2025-03-18 18:12 | disposition home or self-care (01) ==
LOC: HO.ED 18:11
PROVIDERS: Emergency Provider Emergency Medicine
DX: S22.42XA Multiple fractures of ribs, left side, initial encounter for closed fracture (principal); S27.9XXA Injury of unspecified intrathoracic organ, initial encounter; W10.9XXA Fall (on) (from) unspecified stairs and steps, initial encounter; Y93.9 Activity, unspecified; Y92.9 Unspecified place or not applicable; Y99.9 Unspecified external cause status; R10.10 Upper abdominal pain, unspecified; R07.1 Chest pain on breathing
CPT/HCPCS: 71101; 94010; 99282; 99283

== ENCOUNTER → 2025-03-18 16:35 | Outpatient (BNV) | payer OTHER, SELFPAY | PROVIDERS: Visit Provider Radiology Diagnostic Radiology | DX: R07.89 Other chest pain (principal) | CPT/HCPCS: 71101 ==